=== PATIENT | female | born 1970 | race Caucasian/White ===

== ENCOUNTER 2021-08-10 02:21 | Emergency (ER) | payer OTHER ==
[~2021-08-10 02:21] MED LIST: FLOMAX0.4 MG PO; PERCOCET 5/325 T1 EA PO; TORADOL 10 MG T10 MG PO
[2021-08-10 03:08] LABS: HEMOGLOBIN 12.3 gm/dl (12.3-15.3); RED BLOOD COUNT 4.24 M/UL (4.00-5.10); WHITE BLOOD COUNT 9.8 K/UL (4.5-11.0)
[2021-08-10 03:28] LABS: BUN/CREATININE RATIO 25 (0-10)
== END 2021-08-10 05:08 | disposition home or self-care (01) ==
LOC: ER1 02:21
PROVIDERS: Physician Assistant
DX: R10.32 Left lower quadrant pain (principal); R11.2 Nausea with vomiting, unspecified; Z87.442 Personal history of urinary calculi; Z90.49 Acquired absence of other specified parts of digestive tract
CPT/HCPCS: 80053; 81001; 83690; 85025; 87086; 96361; 96374; 96375; 99284; J1885; J2405

== ENCOUNTER → 2021-11-12 | Outpatient (CLI) | payer OTHER | LOC: NM 10-27 08:30 | DX: E05.90 Thyrotoxicosis, unspecified without thyrotoxic crisis or storm (principal) | CPT/HCPCS: 78012; A9516 ==